=== PATIENT | male | born 1950 | race African-American/Black ===

== ENCOUNTER → 2018-05-01 | Day surgery (SDC) | payer MEDICARE ==
[~2018-05-01] MED LIST: LIDOCAINE 1% PF 2 ML VIAL. ID; LIDOCAINE 2% PF Vial for OR 5 ML VIAL.; MIDAZOLAM HCL/PF 2 MG/2 ML VIAL. IV; PROPOFOL 20 ML IV; fentaNYL PF VIAL 100 MCG/2 ML VIAL IV
[2018-05-01] MEDS: IV RINGERS,LACTATED 1000ML 1,000 ML IV (13:36)
== END | disposition home or self-care (01) ==
LOC: SURG 12:43
DX: K29.50 Unspecified chronic gastritis without bleeding (principal); Z88.2 Allergy status to sulfonamides; Z82.3 Family history of stroke; Z79.899 Other long term (current) drug therapy
CPT/HCPCS: 43235; J2001; J2704